=== PATIENT | female | born 1945 | race Caucasian/White ===

== ENCOUNTER 2020-07-28 22:15 | Emergency (ER) | payer MEDICARE, SELFPAY ==
[2020-07-28 22:25] VITALS: BP 167/74; PULSE 72; RESP 16; TEMP 36.7; O2SAT 99; BMI 24.6
--- NOTE | 2020-07-28 22:26 | DI.RAD.S_ITS ---
PROCEDURE: XR WRIST LT MIN 3V INDICATIONS: distal radius pain after fall TECHNIQUE: 4 views of the wrist were acquired. COMPARISON: None. FINDINGS: Bones: Comminuted, intra-articular fracture of the distal radius is noted. Scaphoid is intact. Soft tissues: No suspicious soft tissue calcifications. IMPRESSION: Comminuted , intra-articular distal radius fracture. Dictated by: Shameka Hines MD, PhD on 07/29/2020 at 9:21 Approved by: Shameka Hines MD, PhD on 07/29/2020 at 9:22
--- NOTE | 2020-07-28 22:27 | ED_ITS ---
HPI - General Adult General Chief complaint: Extremity Injury, Upper Stated complaint: left wrist injury Time Seen by Provider: 07/28/20 22:21 Source: patient Mode of arrival: Ambulatory Limitations: no limitations History of Present Illness HPI narrative: Patient is a 75-year-old female who was sent over from [facility] for evaluation potential left wrist fracture. Patient states she was coming down some stairs where she fell. States she landed directly on her buttocks and also with her left hand outstretched. Had pain afterwards. Arrived in a splint and a sling. No elbow or shoulder pain. She did not hit her head. No other injuries reported from the event Related Data Allergies Allergy/AdvReac Type Severity Reaction Status Date / Time amoxicillin Allergy Hives Verified 07/28/20 22:25 hydrocodone AdvReac Nausea Verified 07/28/20 22:25 Review of Systems Constitutional Constitutional: Denies headache(s) ENT Ears, Nose, Mouth, and Throat: Denies headache(s) Musculoskeletal Musculoskeletal: Denies tingling Comments: Left wrist pain Integumentary/Breasts Skin/Breast: Denies lesions and Denies rash Neurologic Neurologic: Denies headache(s) and Denies tingling Hematologic/Lymphatic On Anticoagulants: No Allergic/Immunologic Allergic/Immunologic: Denies urticaria Patient History Medical History Healthy adult Social History Smoking Status: Never smoker Exam Initial Vital Signs Initial Vital Signs: Vital Signs Temperature 98.0 F 07/28/20 22:25 Pulse Rate 72 07/28/20 22:25 Respiratory Rate 16 07/28/20 22:25 Blood Pressure 167/74 H 07/28/20 22:25 Pulse Oximetry 99 07/28/20 22:25 Const General: cooperative and comfortable Resp Effort & Inspection: normal respiratory effort Cardio Pulses: radial pulses present on the left Skin Lesions: no lesions Rashes: no rashes Neuro General: patient alert, patient awake and patient oriented x3 Extrem General: capillary refill normal Other: Tenderness to palpation distal radius. Tenderness with flexion-extension of the wrist. Tenderness with pronation supination. Left elbow left shoulder left hand unremarkable. Psych Appearance: grossly normal and well kempt Procedures Orthopedic Splinting/Casting Injury #1: Side: left Upper Extremity Injury Location: wrist Upper Extremity Immobilizer: thumb spica Post splinting neuro exam: intact Post splinting vascular exam: intact Placed by: Provider Course Orders Ordered: ED Orders 07/28/20 22:26 XR wrist LT min 3V Stat Vital Signs Vital signs: Vital Signs - 8 hr 07/28/20 22:25 Temperature 98.0 F Pulse Rate 72 Respiratory Rate 16 Blood Pressure 167/74 H Pulse Oximetry 99 Medical Decision Making Imaging Data Extremity x-ray #1: Radiologist's Impression: Intra-articular distal radius fracture MDM Narrative Medical decision making narrative: Patient is neurovascularly intact. X-ray show intra-articular distal radius fracture left wrist. A splint was placed described above. No other injuries reported from the patient from the event or found on exam. Patient was given care instructions and return precautions. She expressed understanding and agreement. Discharge Plan Departure Patient Disposition: Home Clinical Impression: Distal radius fracture, left Instructions: How to Take Care of Your Splint, DI for Distal Radius Fracture Activity Restrictions/Additional Instructions: Tomorrow contact the [facility] at [phone] to schedule a follow-up visit. Until then keep the splint on and keep it clean and keep it dry. You can take Tylenol and/or ibuprofen for any discomfort. Return to the emergency department for any new or worsening symptoms
[2020-07-28 23:26] VITALS: BP 137/63; PULSE 60; O2SAT 97
== END 2020-07-28 23:20 | disposition home or self-care (01) ==
PROVIDERS: Emergency Provider Emergency Medicine
DX: S52.502A Unspecified fracture of the lower end of left radius, initial encounter for closed fracture (principal); W10.9XXA Fall (on) (from) unspecified stairs and steps, initial encounter
CPT/HCPCS: 29125; 73110; 99281; 99283